=== PATIENT | male | born 1950 | race Caucasian/White ===

== ENCOUNTER 2019-09-13 11:53 | Emergency (ER) | payer OTHER ==
--- NOTE | 2019-09-13 13:59 | ED ---
Head Injury - HPI Summary HPI Summary: This patient is a 69-year-old male presenting to the ED after a fall. Patient states he [facility] to [facility] after a fall occurred at 6:30 AM. He states he tripped and fell. He denies any dizziness prior to the fall. Denies any LOC. Denies any visual changes, confusion, memory loss or neck pain. He states he feels otherwise well. He states he had a headache earlier, but this resolved. He has not taken any medication. He is currently on Pradaxa for atrial fibrillation. - History Of Current Complaint Chief Complaint: EDHeadInjury Stated Complaint: FALL PER Time Seen by Provider: 09/13/19 12:40 Hx Obtained From: Patient Mechanism Of Injury: Blunt Trauma Onset/Duration: Started Hours Ago Onset of Pain: Hours Severity Currently: Moderate Severity Initially: Moderate Pain Intensity: 2 Pain Scale Used: 0-10 Numeric Aggravating Factor(s): Movement Associated Signs And Symptoms: Negative - Risk Factors SDH Risk Factor: Negative - Allergies/Home Medications Allergies/Adverse Reactions: Allergies Allergy/AdvReac Type Severity Reaction Status Date / Time No Known Allergies Allergy Verified 09/13/19 11:57 Home Medications: Home Medications Aspirin EC TAB* [Ecotrin EC Low Dose 81 MG*] 81 mg PO DAILY 09/13/19 [History Confirmed 09/13/19] Atorvastatin* [Lipitor*] 80 mg PO DAILY 09/13/19 [History Confirmed 09/13/19] Carvedilol TAB* [Coreg TAB*] 37.5 mg PO BID 09/13/19 [History Confirmed 09/13/19 ] Dabigatran CAP(NF) [Pradaxa CAP(NF)] 150 mg PO BID 09/13/19 [History Confirmed 09/13/19] Empaglifozin (NF) [Jardiance] 12.5 mg PO QAM 09/13/19 [History Confirmed ] Ergocalciferol CAP* [Drisdol CAP*] 50,000 units PO MONTHLY 09/13/19 [History Confirmed 09/13/19] Furosemide TAB* [Lasix TAB*] 80 mg PO DAILY 09/13/19 [History Confirmed 09/13/19 ] Meclizine TAB* [Antivert 12.5 TAB*] 25 mg PO QID PRN 09/13/19 [History Confirmed 09/13/19] [place]-3 Fatty Acids (Nf) [Fish Oil (NF)] 1,000 mg PO BID 09/13/19 [History Confirmed 09/13/19] Omeprazole CAP (NF) [Prilosec CAP* 20 MG] 20 mg PO BID 09/13/19 [History Confirmed 09/13/19] Potassium Chlor TAB (NF) [Kaon-Cl-10 TAB (NF)] 40 meq PO DAILY 09/13/19 [ History Confirmed 09/13/19] Spironolactone TAB* [Aldactone TAB*] 25 mg PO DAILY 09/13/19 [History Confirmed 09/13/19] metFORMIN* [Glucophage 1000 MG TAB *] 1,000 mg PO BID 09/13/19 [History Confirmed 09/13/19] PMH/Surg Hx/FS Hx/Imm Hx Previously Healthy: Yes - Immunization History Hx Pertussis Vaccination: No Immunizations Up to Date: Yes Infectious Disease History: No Infectious Disease History: Denies: Traveled Outside the [place] in Last 30 Days - Social History Occupation: Unemployed Lives: With Family Alcohol Use: Rare Hx Substance Use: No Substance Use Type: Reports: None Hx Tobacco Use: No Smoking Status (MU): Never Smoked Tobacco Review of Systems Negative: Fever, Chills, Fatigue, Skin Diaphoresis Negative: Palpitations, Chest Pain Negative: Shortness Of Breath, Cough Genitourinary: Negative Positive: no symptoms reported, see HPI Negative: Arthralgia, Myalgia Positive: Bruising - left side of forehead Positive: Headache All Other Systems Reviewed And Are Negative: Yes Physical Exam Triage Information Reviewed: Yes Vital Signs On Initial Exam: Initial Vitals Temp Pulse Resp BP Pulse Ox 97.0 F 70 16 127/87 95 09/13/19 11:53 09/13/19 11:53 09/13/19 11:53 09/13/19 11:53 09/13/19 11:53 Vital Signs Reviewed: Yes Appearance: Positive: Well-Appearing, Well-Nourished Skin: Positive: Warm, Skin Color Reflects Adequate Perfusion Head/Face: Positive: Normal Head/Face Inspection Eyes: Positive: EOMI, SURYA, Conjunctiva Clear Neck: Positive: Supple, No Lymphadenopathy Respiratory/Lung Sounds: Positive: Clear to Auscultation, Breath Sounds Present Cardiovascular: Positive: RRR, Pulses are Symmetrical in both Upper and Lower Extremities Musculoskeletal: Positive: Normal, Strength/ROM Intact Neurological: Positive: Speech Normal Psychiatric: Positive: Normal, Affect/Mood Appropriate AVPU Assessment: Alert Procedures - Sedation Patient Received Moderate/Deep Sedation with Procedure: No Diagnostics - Vital Signs Vital Signs Temp Pulse Resp BP Pulse Ox 09/13/19 11:53 97.0 F 70 16 127/87 95 - Laboratory Lab Statement: Any lab studies that have been ordered have been reviewed, and results considered in the medical decision making process. Head Injury Course/Dx Course Of Treatment: During this treatment, patient was evaluated for head injury. Patient states he had a left-sided head trauma which involved the L side of the face and forehead. Pt denies any pain to the face. Does endorse a slight FOSS. He also has endorsing some pain to the left knee, however is able to ambulate well, flexion and extension intact. A CT brain was obtained which shows no acute findings. Neuro exam intact. Patient okay for discharge at this time. Diagnosed with head injury. - Diagnoses Differential Diagnosis/HQI/PQRI: Contusion, Hematoma Provider Diagnoses: Head injury Discharge ED - Sign-Out/Discharge Documenting (check all that apply): Patient Departure - Discharge Plan Condition: Stable Disposition: HOME Patient Education Materials: Head Injury (ED) Referrals: Kristen Patterson [Primary Care Provider] - - Billing Disposition and Condition Condition: STABLE Disposition: Home - Attestation Statements Provider Attestation: I was available for consultation for this patient. I did not evaluate the patient or participate in any medical decision making or disposition decisions unless I am specifically named in the chart as having consulted on the patient. If I have consulted on the patient, please see my own ED note on the patient encounter. Manuelito Pennington MD
[2019-09-13 14:03] VITALS: BP 116/84
== END 2019-09-13 14:01 | disposition home or self-care (01) ==
LOC: ED 11:53
DX: S09.90XA Unspecified injury of head, initial encounter (principal); W01.0XXA Fall on same level from slipping, tripping and stumbling without subsequent striking against object, initial encounter; Y92.9 Unspecified place or not applicable; I48.91 Unspecified atrial fibrillation; Z79.01 Long term (current) use of anticoagulants; Z79.82 Long term (current) use of aspirin; Z79.899 Other long term (current) drug therapy
CPT/HCPCS: 70450; 99282